=== PATIENT | female | born 1975 | race Caucasian/White ===

== ENCOUNTER 2022-07-02 11:01 | Emergency (ER) | payer BC, MEDICARE, SELFPAY ==
[2022-07-02] VITALS (17 sets, daily range): BP systolic 113–173; BP diastolic 80–123; PULSE 86–118; TEMP 36.7; O2SAT 96–100; BMI 41.3
--- NOTE | 2022-07-02 11:23 | ED.GENADULT ---
HPI - General Adult General Time Seen by Provider: 11:24 Date Seen: 07/02/22 Chief complaint: Abdominal Pain Stated complaint: Abdominal/back/limb pain Time Seen by Provider: 07/02/22 11:23 Source: patient and RN notes reviewed Mode of arrival: ambulatory Limitations: no limitations History of Present Illness HPI narrative: This 46-year-old patient is coming in with abdominal pain, pain into her legs, pain into her arms, pain and or head. She states she has chronic right-sided abdominal pain but it worsened. She actually went to [facility] on June 18 per her report. She had severe right-sided pain that shot indoor back down both sciatic sit down due in to her toes and into both arms. It shot up into her head. She states they did a CT and found a right ovarian cyst, possibly 2 cm. She has done some reading and notes that these can tours. She was also found to be constipated. She did take 1 dose of MiraLax, has had 2 bowel movements and there is no improvement. Yesterday she had increased emesis, has known problems with emesis. She is status post gastric bypass did have an EGD. I have reviewed her clinic note from April 30. She notes this morning there was low pink tinge in her emesis and she had more emesis of saliva and more bile yellow green emesis this morning. The pain radiates into her back, she feels pulse seen indoor shins. She states nothing makes the pain goes down. She thrashes at night, states she has ripped sheets and blankets due to the pain. Last night there was a hot poker type pain and she was hanging onto her daughter and accidentally squeezed her daughter hard that her daughter states it hurt. She states yesterday she noted a temp of 102? at home but it was 99 this morning. At our triage intake, her temp was 98?. Tizanidine has usually controlled her abdominal symptoms. She states she has not been able to eat or drink well. Related Data Home Medications Medication Instructions Recorded Confirmed escitalopram oxalate 20 mg tablet 20 mg PO DAILY 04/30/22 04/30/22 lisinopril 20 1 tab PO DAILY 04/30/22 04/30/22 mg-hydrochlorothiazide 25 mg tablet Medical Cannabis 07/02/22 Previous Rx's Medication Instructions Recorded metoprolol succinate 25 mg 25 mg PO QDAY #90 tabs 04/30/22 tablet,extended release 24 hr tizanidine 4 mg tablet 8 mg PO QID #240 tabs 04/30/22 omeprazole 20 mg capsule,delayed See Rx Instructions .Route 06/02/22 release .COMPLEX #90 caps Allergies Allergy/AdvReac Type Severity Reaction Status Date / Time adhesive Allergy Mild skin Verified 07/02/22 14:38 redness, peeling duloxetine Allergy Mild serotonin Verified 07/02/22 14:38 syndrome ibuprofen Allergy Unknown Verified 07/02/22 14:38 naproxen Allergy Unknown Verified 07/02/22 14:38 CI Pigment Blue 63 Allergy Mild serotonin Uncoded 07/02/22 14:38 syndrome Review of Systems Status of ROS: Reports: 10 or more systems reviewed and unremarkable except as noted in History and below [facility] Medical History (Updated 07/02/22 @ 15:39 by Stacie Daugherty MD) History of attention deficit disorder History of autism History of constipation History of irritable bowel syndrome Surgical History (Updated 04/30/22 @ 10:00 by Corrina Hicks PA-C) History of section History of colonoscopy History of esophagogastroduodenoscopy (EGD) History of gastric bypass History of hysterectomy Status post laparoscopy Family History (Updated 04/03/22 @ 13:47 by Lynn Martini) Father Cardiovascular disease Brother Cardiovascular disease Other Mental disorder Skin cancer Social History (Updated 04/03/22 @ 13:48 by Lynn Martini) Narrative: Disabled Has 2 children Medical cannabis use Non-smoker Smoking Status: Never smoker Do you use any of these nicotine containing products: None Second hand tobacco smoke exposure: No How often do you have a drink containing alcohol: never How often do you have six or more drinks on one occasion: Never AUDIT-C Alcohol total score: 0 Non-prescribed substance use: marijuana (any form) Exam Const: Vital Signs, click to edit/add: Vital Signs - 24 hr 07/02/22 11:05 07/02/22 12:31 07/02/22 12:32 Temperature 98.0 F Pulse Rate 110 H 102 H Pulse Rate [Right Pulse Oximeter] 118 H Blood Pressure 130/114 H Blood Pressure [Le ft Forearm] 113/94 H Pulse Oximetry 97 97 96 Oxygen Delivery Me thod Room Air 09/08/22 12:33 07/02/22 13:00 07/02/22 13:01 Temperature Pulse Rate 101 H 105 H 102 H Pulse Rate [Right Pulse Oximeter] Blood Pressure 121/80 Blood Pressure [Le ft Forearm] Pulse Oximetry 96 98 100 Oxygen Delivery Me thod 07/02/22 13:02 07/02/22 13:30 07/02/22 13:33 Temperature Pulse Rate 105 H 102 H 97 Pulse Rate [Right Pulse Oximeter] Blood Pressure 153/113 H Blood Pressure [Le ft Forearm] Pulse Oximetry 98 98 99 Oxygen Delivery Me thod 07/02/22 13:34 07/02/22 14:00 07/02/22 14:01 Temperature Pulse Rate 97 93 91 Pulse Rate [Right Pulse Oximeter] Blood Pressure 172/123 H Blood Pressure [Le ft Forearm] Pulse Oximetry 99 99 100 Oxygen Delivery Me thod 07/02/22 14:02 07/02/22 14:34 07/02/22 14:35 Temperature Pulse Rate 94 93 93 Pulse Rate [Right Pulse Oximeter] Blood Pressure 173/116 H Blood Pressure [Le ft Forearm] Pulse Oximetry 99 97 98 Oxygen Delivery Me thod 07/02/22 15:01 07/02/22 15:02 Temperature Pulse Rate 86 89 Pulse Rate [Right Pulse Oximeter] Blood Pressure 162/123 H Blood Pressure [Le ft Forearm] Pulse Oximetry 99 98 Oxygen Delivery Me thod Documenting provider has reviewed patient's vital signs: yes Common normals: oriented x3, no limitations, healthy appearing and alert General appearance: cooperative Nutritional appearance: obese HENMT: Common normals: normocephalic, head/scalp atraumatic, hearing grossly normal bilaterally, external ears normal, EAC's normal, external nose normal, nasal mucous membranes and turbinates normal, oropharynx normal, dentition normal and gingiva normal Head and scalp: normocephalic and atraumatic Nose: external nose normal, nasal mucous membranes and turbinates normal and mucous membranes and turbinates abnormal (Mildly dry) External ear: external ears normal External auditory canal: EAC's normal Eye: Common normals: PERRL, EOMs intact bilaterally, conjunctivae normal and no scleral icterus Conjunctiva: conjunctiva(e) normal Pupil: PERRL Neck & C-Spine: Common normals: full ROM, no lymphadenopathy, supple, no meningeal signs, no JVD and thyroid normal Thyroid: thyroid normal Resp: Common normals: normal respiratory effort, no retractions, no use of accessory muscles and clear to auscultation bilaterally Auscultation: clear to auscultation bilaterally Cardio: Common normals: no JVD, regular rate, regular rhythm, S1 normal heart sound, S2 normal heart sound, no gallops, no clicks and no murmurs Rate: regular rate Rhythm: regular rhythm Heart sounds: S1 normal and S2 normal GI: Other: Cries out in pain if I touch her abdomen anywhere. It is diffusely this way throughout her whole abdomen, abdomen is obese but soft. It is difficult to say if there is rebound or guarding due to her vigorous response to pain. Body habitus precludes any palpation of any masses but overall her abdomen is soft. Bowel sounds are there and present, do not feel they have any abnormal character. Back & Pelvis: Other: Cries out in pain when I palpate along her back, her paraspinous area. 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 Extremity: Other: Complains of pain when I attempt to do straight leg raising, states it is painful but do note that she can bend her legs up and push herself back up into bed and does not seem to bother her at all. She has no lower extremity edema. Seems to have symmetrical use in strength when I am observing her push herself back up into bed. Normal light touch sensation. Neuro: Common normals: oriented x3 Sensorium/orientation: alert Meningeal signs: no meningeal signs Course Course Hospital Course: Patient does seem to have an exaggerated pain response which may be her baseline. She does not seem to be in any way significantly compromised thus far as hemodynamic stability. I will order a L of fluids for her, get labs to make sure we are not missing a process. We will start with a flat and upright of her abdomen just to look at the bowel pattern, ensure no residual constipation. I will redo a pelvic ultrasound. I have tried to reassure her that a 2 cm cyst is not likely to cause ovarian torsion. We will see if we can see the right ovary to make sure that the cyst has not grown or that there are no concerning changes. I will talk to Yina about possibly some IV Toradol if she needs it. She lists ibuprofen and naproxen is allergies and need to confirm that these are true allergies but more of contraindication due to her gastric bypass. Reevaluation(s) Reevaluation #1: Reviewed with patient that her white count is up a little bit. Lactate when she came in was mildly elevated, could be consistent with her recurrent vomiting. We will recheck this after her L of fluids to ensure that is coming down. Have discussed with her her flat and upright and pelvic ultrasound are not showing anything concerning but they really could not visualize the ovaries due to bowel gas on the ultrasound. This would suggest that there is nothing in the ovaries that is significantly large but does not 100% rule out issues. We discussed next steps. She was told she could not take NSAIDs due to history of clotting. I reviewed with her that that really makes no sense as NSAIDs diminish platelets from forming clots in the thrombotic cascade. If patient's are on anticoagulants for vascular thrombosis, we will tell patient is to avoid NSAIDs then. Gastric bypass patients can be told to avoid oral NSAIDs because of the decreased gastric mobility in the NSAIDs increasing the risk for ulcers. However, IV Toradol certainly could be used even a gastric bypass patient. We will try this. We are going to proceed with CT abdomen and pelvis with IV contrast given her pain is significant in we really do not have definitive enough evidence to rule out an acute abdomen. Reevaluation #2: She is back from CT. She is getting waves of sharp pain. Offered to give her some IV Ativan but she does not want anything potentially addicting. Did offer to give her a dose of her tizanidine but she states she can take it when she gets home. We are waiting CT report at this time. Time: 14:46 Reevaluation #3: Reviewed with patient that the CT is not showing any acute change for any abdominal pain. Ovaries appear normal. Her liver does show hepatic steatosis which we did discuss. She stated she did get 6 tablets of pain pills upon discharge from [facility]. I did bring up pain management. We discussed the problem with narcotics in pain management. She does understand but she really has been miserable. She receives 6 tablets of tramadol per the [place] prescribing web site. She made those last and only took them at night to help her sleep. She does have a clinic appointment on Wednesday with her primary care provider. At this time I do feel that it would be crawl to assess patient to not try something for her. She has tried Tikosyn mean in the past but with her recent constipation on the CT that she was told from [facility], would not want her to take this medicine. She certainly will need further follow-up and evaluation and this at this time will have to be done outpatient she does not need hospitalization. Her followup lactate normalized. We will send her home with a prescription from [facility] with the smallest dose of tramadol we have. Time: 15:33 Vital Signs Vital signs: Initial Vital Signs Temperature 98.0 F 07/02/22 11:05 Temperature Source Temporal Artery Scan 07/02/22 11:05 Pulse Rate 118 H 07/02/22 11:05 Blood Pressure 113/94 H 07/02/22 11:05 Blood Pressure Mean 100 07/02/22 11:05 Blood Pressure Position Sitting 07/02/22 11:05 Pulse Oximetry 97 07/02/22 11:05 Oxygen Delivery Method 07/02/22 11:05 Vital Signs Temperature 98.0 F 07/02/22 11:05 Pulse Rate 118 H 07/02/22 11:05 Blood Pressure 113/94 H 07/02/22 11:05 Pulse Oximetry 97 07/02/22 11:05 Oxygen Delivery Method 07/02/22 11:05 Temperature 98.0 F 07/02/22 11:05 Pulse Rate 89 07/02/22 15:02 Blood Pressure 162/123 H 07/02/22 15:01 Pulse Oximetry 98 07/02/22 15:02 Oxygen Delivery Method 07/02/22 11:05 Medical Decision Making Lab Data Lab results reviewed: Yes I reviewed the patient's lab results Labs: Lab Results 07/02/22 07/02/22 07/02/22 Range/Units 11:44 11:50 11:50 WBC 11.37 H (4.50-11.00) K/uL RBC 5.58 H (4.00-5.20) m/uL Hgb 15.3 (12.0-16.0) gm/dL Hct 46.0 (33.0-51.0) % MCV 82 (80-100) fL MCH 27 (26-34) pg MCHC 33 (32-36) gm/dL RDW Coeff of Judi 14.2 (11.5-15.5) % Plt Count 381 (140-440) K/uL Neut % (Auto) 67.6 (42.0-72.0) % Lymph % (Auto) 28.1 (20-44) % Steele % (Auto) 3.8 (0.0-11.0) % Eos % (Auto) 0.3 (0.0-7.0) % Baso % (Auto) 0.1 (0.0-3.0) % Neut # (Auto) 7.70 H (1.7-7.0) K/uL Lymph # (Auto) 3.20 H (0.90-2.90) K/uL Steele # (Auto) 0.40 (0.00-0.90) K/UL Eos # (Auto) 0.00 (0.00-0.50) K/uL Baso # (Auto) 0.00 (0.00-0.30) K/uL Abs Immat Gran (auto) 0.01 (0.00-0.30) K/uL Sodium 140 (135-149) mmol/L Potassium 4.0 (3.6-5.1) mmol/L Chloride 105 (96-114) mmol/L Carbon Dioxide 22 (20-32) mmol/L BUN 11 (5-24) mg/dL Creatinine 0.6 (0.5-1.5) mg/dL Estimated Creat Clear 105.42 Estimated GFR 112 ml/min Glucose 133 H (60-115) mg/dL Lactate (0.5-1.9) mmol/L Calcium 9.6 (8.4-10.6) mg/dL Total Bilirubin 0.8 (0.1-1.5) mg/dL AST 56 H (12-35) U/L ALT 54 H (4-35) U/L Alkaline Phosphatase 183 H (40-150) U/L C-Reactive Protein 1.4 H (0.5-1.0) mg/dL Total Protein 8.5 H (6.0-8.3) g/dL Albumin 4.8 (3.3-5.0) g/dL Lipase 217 (23-300) U/L Urine Color Yellow (Yellow) Urine Appearance Slightly Cloudy A (Clear) Urine pH 5.0 (5.0-8.5) Ur Specific [place] 1.020 (1.000-1.030) Urine Protein Negative (Negative) Urine Glucose (UA) Negative (Negative) Urine Ketones Negative (Negative) Urine Blood Negative (Negative) Urine Nitrite Negative (Negative) Urine Bilirubin Negative (Negative) Urine Urobilinogen 0.2 (0.2-1.0) Ur Leukocyte Esterase Negative (Negative) Urine RBC 0-2 (0-2) Urine WBC 0-2 (0-5) Ur Squamous Epith Cells Few (None-Few) Urine Bacteria Few A (None) 07/02/22 07/02/22 Range/Units 11:50 13:45 WBC (4.50-11.00) K/uL RBC (4.00-5.20) m/uL Hgb (12.0-16.0) gm/dL Hct (33.0-51.0) % MCV (80-100) fL MCH (26-34) pg MCHC (32-36) gm/dL RDW Coeff of Judi (11.5-15.5) % Plt Count (140-440) K/uL Neut % (Auto) (42.0-72.0) % Lymph % (Auto) (20-44) % Steele % (Auto) (0.0-11.0) % Eos % (Auto) (0.0-7.0) % Baso % (Auto) (0.0-3.0) % Neut # (Auto) (1.7-7.0) K/uL Lymph # (Auto) (0.90-2.90) K/uL Steele # (Auto) (0.00-0.90) K/UL Eos # (Auto) (0.00-0.50) K/uL Baso # (Auto) (0.00-0.30) K/uL Abs Immat Gran (auto) (0.00-0.30) K/uL Sodium (135-149) mmol/L Potassium (3.6-5.1) mmol/L Chloride (96-114) mmol/L Carbon Dioxide (20-32) mmol/L BUN (5-24) mg/dL Creatinine (0.5-1.5) mg/dL Estimated Creat Clear Estimated GFR ml/min Glucose (60-115) mg/dL Lactate 2.5 H 1.1 (0.5-1.9) mmol/L Calcium (8.4-10.6) mg/dL Total Bilirubin (0.1-1.5) mg/dL AST (12-35) U/L ALT (4-35) U/L Alkaline Phosphatase (40-150) U/L C-Reactive Protein (0.5-1.0) mg/dL Total Protein (6.0-8.3) g/dL Albumin (3.3-5.0) g/dL Lipase (23-300) U/L Urine Color (Yellow) Urine Appearance (Clear) Urine pH (5.0-8.5) Ur Specific [place] (1.000-1.030) Urine Protein (Negative) Urine Glucose (UA) (Negative) Urine Ketones (Negative) Urine Blood (Negative) Urine Nitrite (Negative) Urine Bilirubin (Negative) Urine Urobilinogen (0.2-1.0) Ur Leukocyte Esterase (Negative) Urine RBC (0-2) Urine WBC (0-5) Ur Squamous Epith Cells (None-Few) Urine Bacteria (None) Imaging Data US - abdomen: Attestation: I have reviewed the pertinent imaging results. Radiologist's impression: Patient: LENIN DAMARISCOTTA Facility:?[facility] Patient ID:?[id number] Site Patient ID:?[id number]. Site :?[id number] Study:?US Pelvis -07/02/2022 12:23:58 PM Ordering Physician:Delores Quinones Final Report: INDICATION: LOWER ABD PAIN, KNOWN OVARIAN CYST, S/P HYSTERECTOMY COMPARISON: none TECHNIQUE: 2D jhaveri scale and color Doppler images were acquired of the pelvis using a transabdominal and transvaginal approach. FINDINGS: The uterus is surgically absent. The ovaries are not visualized. IMPRESSION: Status post hysterectomy. Nonvisualization of the ovaries due to overlying bowel gas. No pelvic fluid collection or soft tissue mass. Dictated by Horace Link MD @ 07/02/2022 12:26:14 PM (Electronic Signature) Abdominal x-ray: Attestation: I have reviewed the pertinent imaging results. Radiologist's impression: Patient: LENIN GOYALSWORTH Facility:?[facility] Patient ID:?[id number] Site Patient ID:?[id number]. Site :?[id number] Study:?XRay Abdomen FLAT AND UPRIGHT-07/02/2022 12:29:23 PM Ordering Physician:?Dat Quinones Final Report: INDICATION: Pain, complains of abdominal pain, recent constipation TECHNIQUE: Abdomen/Pelvis radiograph 4 views COMPARISON: None FINDINGS: The sensitivity and specificity of the exam are severely limited by the patient`s body habitus. Bowel: Mild nonspecific gaseous distention of the transverse colon is noted. The bowel gas pattern is normal without evidence of bowel obstruction. Soft tissue: No evidence of pneumoperitoneum present. No suspicious calcifications noted. Several surgical clips are present in the left flank. Bone: Unremarkable for age. IMPRESSION: 1. Unremarkable appearance of the visualized abdomen. Dictated by Galindo Chris MD @ 07/02/2022 12:51:07 PM Dictated by: Galindo Chris MD @ 07/02/2022 12:51:17 (Electronic Signature) CT scan - abdomen: Attestation: I have reviewed the pertinent imaging results. Radiologist's impression: Patient: LENIN MASON Facility:?[facility] Patient ID:?[id number] Site Patient ID:?[id number]. Site :?[id number] Study:?CT Abdomen/Pelvis 121CC ISOVUE 370-07/02/2022 2:42:14 PM Ordering Physician:?Dat Quinones Final Report: INDICATION: Right lower quadrant pain. History of ovarian cysts. Nonvisualization of ovaries on recent ultrasound COMPARISON: A prior study dated February 17, 2022 and a pelvic ultrasound from earlier the same day. TECHNIQUE: CT examination of the abdomen and pelvis was performed following the uneventful intravenous administration of 121 cc of Isovue 370. Thin section axial images were obtained from the lung bases through the pubic symphysis. Oral contrast was not administered. Please note that all CT scans at this facility use dose modulation, iterative reconstruction, and/or weight-based dosing when appropriate to reduce radiation dose to as low as reasonably achievable. FINDINGS: LUNG BASES: The lung bases as visualized appear normal.The heart size is normal at the lung bases. LIVER/BILIARY SYSTEM:The liver is normal in size and configuration. There is no focal mass and there is no intra- or extra hepatic biliary ductal dilatation.Hepatic steatosis. Gallbladder surgically absent. ADRENALS: Normal KIDNEYS, URETERS and BLADDER:The kidneys appear normal. No visible mass, calculus or hydronephrosis. The ureters and bladder as visualized appear normal. SPLEEN:Normal appearance. PANCREAS: Appears normal. RETROPERITONEUM and MESENTERY: There is no mass, adenopathy or aortic aneurysm. GASTROINTESTINAL SYSTEM: There is no evidence of diverticulitis, colitis, mechanical obstruction, or appendicitis. The small bowel as visualized appears normal.Postoperative changes related stomach. Acute GI findings. Scattered diverticulosis. PELVIS: No mass, adenopathy or free fluid.No evidence of ovarian or adnexal mass. The uterus is absent. The ovaries are well-visualized and appear normal. OSSEOUS STRUCTURES and ABDOMINAL WALL: There is an age-appropriate appearance of the osseous structures.No significant abdominal wall defect. OTHER: No free fluid or free air. IMPRESSION: No visible cause for pain. The ovaries are well-visualized and appear normal. Incidental nonacute appearing findings as above Please note that all CT scans at this facility use dose modulation, iterative reconstruction, and/or weight-based dosing when appropriate to reduce radiation dose to as low as reasonably achievable. Dictated by Brown Collins MD @ 07/02/2022 3:11:35 PM (Electronic Signature) Critical Care Time Critical Care Time Critical Care Time: No Discharge Plan Discharge Clinical Impression: Right-sided abdominal pain of unknown cause Condition: Stable Instructions: Abdominal Pain (ED) Additional Instructions: Can use Tylenol baseline for pain, follow bottle directions for dosing. I have written for tramadol 50 mg at bedtime as needed to help with sleep. Need to keep your follow-up appointment in clinic. Consideration for further testing including but not limited to colonoscopy, GI referral should be entertained. If you develop fever, feel that you are worsening, cannot keep down oral fluids for over 24 hours, do recommend re-evaluation in the interim. Activity Level: Activity as Tolerated Prescriptions: No Action escitalopram oxalate 20 mg tablet 20 mg PO DAILY lisinopril-hydrochlorothiazide 20-25 mg tablet 1 tab PO DAILY metoprolol succinate 25 mg tablet extended release 24 hr 25 mg PO QDAY Qty: 90 3RF tizanidine 4 mg tablet 8 mg PO QID Qty: 240 5RF Medical Cannabis omeprazole 20 mg capsule,delayed release(DR/EC) See Rx Instructions .ROUTE .COMPLEX Qty: 90 3RF Dose Instruction: TAKE 1 CAPSULE BY MOUTH EVERY DAY Rx Instructions: TAKE 1 CAPSULE BY MOUTH EVERY DAY Follow Up/Referrals: Corrina Hicks PA-C [Primary Care Provider] - Stand Alone Forms: [email or web address] Info Instructions
--- NOTE | 2022-07-02 11:36 | CRLHL7_ITS ---
For Patients: As a result of the Cures Act, medical imaging exams and procedure reports are released immediately into your electronic medical record. You may view this report before your referring provider. If you have questions, please contact your health care provider. INDICATION: LOWER ABD PAIN, KNOWN OVARIAN CYST, S/P HYSTERECTOMY COMPARISON: none TECHNIQUE: 2D jhaveri scale and color Doppler images were acquired of the pelvis using a transabdominal and transvaginal approach. FINDINGS: The uterus is surgically absent. The ovaries are not visualized. IMPRESSION: Status post hysterectomy. Nonvisualization of the ovaries due to overlying bowel gas. No pelvic fluid collection or soft tissue mass. Dictated by Horace Link MD @ 07/02/2022 12:26:14 PM (Electronically Signed)
--- NOTE | 2022-07-02 11:36 | CRLHL7_ITS ---
For Patients: As a result of the Century Cures Act, medical imaging exams and procedure reports are released immediately into your electronic medical record. You may view this report before your referring provider. If you have questions, please contact your health care provider. INDICATION: Pain, complains of abdominal pain, recent constipation TECHNIQUE: Abdomen/Pelvis radiograph 4 views COMPARISON: None FINDINGS: The sensitivity and specificity of the exam are severely limited by the patient`s body habitus. Bowel: Mild nonspecific gaseous distention of the transverse colon is noted. The bowel gas pattern is normal without evidence of bowel obstruction. Soft tissue: No evidence of pneumoperitoneum present. No suspicious calcifications noted. Several surgical clips are present in the left flank. Bone: Unremarkable for age. IMPRESSION: 1. Unremarkable appearance of the visualized abdomen. Dictated by Galindo Chris MD @ 07/02/2022 12:51:07 PM Dictated by: Galindo Chris MD @ 07/02/2022 12:51:17 (Electronically Signed)
[2022-07-02 11:54] LABS: Appearance Urine Slightly Cloudy (Clear); Bilirubin Urine Negative (Negative); Blood Urine Negative (Negative); Color Urine Yellow (Yellow); Glucose Urine Negative (Negative); Ketones Urine Negative (Negative); Leukocyte Esterase Urine Negative (Negative); Nitrite Urine Negative (Negative); Protein Urine Negative (Negative); Urobilinogen Urine 0.2 (0.2-1.0)
[2022-07-02 11:59] LABS: Lactate* 2.5 mmol/L (0.5-1.9)
[2022-07-02 12:04] LABS: Bacteria Urine Few; RBC Urine 0-2 (0-2); Squamous Epithelial Cell Urine Few (None-Few); WBC Urine 0-2 (0-5)
[2022-07-02 12:05] LABS: Basophils Percent Auto 0.1 % (0.0-3.0); Eosinophils Percent Auto 0.3 % (0.0-7.0); Hemoglobin* 15.3 gm/dL (12.0-16.0); Immature Granulocytes Abs Auto 0.01 K/uL (0.00-0.30); Lymphocytes Percent Auto 28.1 % (20-44); Mean Corpuscular HGB Conc 33 gm/dL (32-36); Mean Corpuscular Hemoglobin 27 pg (26-34); Mean Corpuscular Volume 82 fL (80-100); Monocytes Percent Auto 3.8 % (0.0-11.0); Neutrophils Percent Auto 67.6 % (42.0-72.0); Platelet Count* 381 K/uL (140-440); RDW Coefficient of Variation % 14.2 % (11.5-15.5); Red Blood Count 5.58 m/uL (4.00-5.20); White Blood Count* 11.37 K/uL (4.50-11.00)
[2022-07-02 12:09] LABS: Slide Review Reflex No
[2022-07-02 12:22] LABS: Albumin* 4.8 g/dL (3.3-5.0); Chloride* 105 mmol/L (96-114)
[2022-07-02 12:23] LABS: Sodium* 140 mmol/L (135-149)
[2022-07-02 12:25] LABS: Bilirubin Total* 0.8 mg/dL (0.1-1.5); Creatinine* 0.6 mg/dL (0.5-1.5); Est. Creatinine Clearance* 105.42; Estimated Glomerular Filt Rate 112 ml/min
[2022-07-02 12:26] LABS: Alanine Aminotransferase* 54 U/L (4-35); Alkaline Phosphatase* 183 U/L (40-150); Aspartate Amino Transferase* 56 U/L (12-35); Blood Urea Nitrogen* 11 mg/dL (5-24); Calcium* 9.6 mg/dL (8.4-10.6); Carbon Dioxide* 22 mmol/L (20-32); Glucose* 133 mg/dL (60-115); Lipase* 217 U/L (23-300); Total Protein* 8.5 g/dL (6.0-8.3)
[2022-07-02 12:29] LABS: C Reactive Protein* 1.4 mg/dL (0.5-1.0)
[2022-07-02] MEDS: 0.9 % SODIUM CHLORIDE 1000 ml 1,000 ML IV (12:33)
--- NOTE | 2022-07-02 13:29 | CRLHL7_ITS ---
For Patients: As a result of the Century Cures Act, medical imaging exams and procedure reports are released immediately into your electronic medical record. You may view this report before your referring provider. If you have questions, please contact your health care provider. INDICATION: Right lower quadrant pain. History of ovarian cysts. Nonvisualization of ovaries on recent ultrasound COMPARISON: A prior study dated February 17, 2022 and a pelvic ultrasound from earlier the same day. TECHNIQUE: CT examination of the abdomen and pelvis was performed following the uneventful intravenous administration of 121 cc of Isovue 370. Thin section axial images were obtained from the lung bases through the pubic symphysis. Oral contrast was not administered. Please note that all CT scans at this facility use dose modulation, iterative reconstruction, and/or weight-based dosing when appropriate to reduce radiation dose to as low as reasonably achievable. FINDINGS: LUNG BASES: The lung bases as visualized appear normal.The heart size is normal at the lung bases. LIVER/BILIARY SYSTEM:The liver is normal in size and configuration. There is no focal mass and there is no intra- or extra hepatic biliary ductal dilatation.Hepatic steatosis. Gallbladder surgically absent. ADRENALS: Normal KIDNEYS, URETERS and BLADDER:The kidneys appear normal. No visible mass, calculus or hydronephrosis. The ureters and bladder as visualized appear normal. SPLEEN:Normal appearance. PANCREAS: Appears normal. RETROPERITONEUM and MESENTERY: There is no mass, adenopathy or aortic aneurysm. GASTROINTESTINAL SYSTEM: There is no evidence of diverticulitis, colitis, mechanical obstruction, or appendicitis. The small bowel as visualized appears normal.Postoperative changes related stomach. Acute GI findings. Scattered diverticulosis. PELVIS: No mass, adenopathy or free fluid.No evidence of ovarian or adnexal mass. The uterus is absent. The ovaries are well-visualized and appear normal. OSSEOUS STRUCTURES and ABDOMINAL WALL: There is an age-appropriate appearance of the osseous structures.No significant abdominal wall defect. OTHER: No free fluid or free air. IMPRESSION: No visible cause for pain. The ovaries are well-visualized and appear normal. Incidental nonacute appearing findings as above Please note that all CT scans at this facility use dose modulation, iterative reconstruction, and/or weight-based dosing when appropriate to reduce radiation dose to as low as reasonably achievable. Dictated by Brown Collins MD @ 07/02/2022 3:11:35 PM (Electronically Signed)
[2022-07-02] MEDS: KETOROLAC 30 MG/ML inj IVP (13:38)
[2022-07-02 13:51] LABS: Lactate* 1.1 mmol/L (0.5-1.9)
== END 2022-07-02 15:59 | disposition home or self-care (01) ==
PROVIDERS: Emergency Provider Family Medicine; PCP Physician Assistant Medical
DX: R10.9 Unspecified abdominal pain (principal)
CPT/HCPCS: 36415; 74019; 74177; 76830; 76856; 80053; 81001; 83605; 83690; 85025; 86140; 87086; 96374; 99284; 99285; J1885; J7030; Q9967

== ENCOUNTER 2022-07-07 10:42 | Outpatient (CLI) | payer BC, MEDICARE, SELFPAY ==
[2022-07-07 16:17] LABS: Albumin* 4.9 g/dL (3.3-5.0)
[2022-07-07 16:19] LABS: Bilirubin Direct* 0.3 mg/dL (0.0-0.5); Bilirubin Total* 0.8 mg/dL (0.1-1.5); Cholesterol* 260 mg/dL (90-199); Total Protein* 8.1 g/dL (6.0-8.3); Triglycerides* 333 mg/dL (40-149)
[2022-07-07 16:20] LABS: Alanine Aminotransferase* 41 U/L (4-35); Alkaline Phosphatase* 211 U/L (40-150); Aspartate Amino Transferase* 42 U/L (12-35); HDL Cholesterol* 53 mg/dL (>=50); LDL Cholesterol Calculated 140 mg/dL (<100)
[2022-07-07 17:04] LABS: Vitamin B12* 313 pg/mL (243-894)
[2022-07-09 05:02] LABS: Vitamin D, 1,25-Dihydroxy 70.6 pg/mL (19.9-79.3)
== END 2022-07-07 10:43 | disposition home or self-care (01) ==
PROVIDERS: PCP Physician Assistant Medical; Visit Provider Physician Assistant Medical
DX: E55.9 Vitamin D deficiency, unspecified (principal); I10 Essential (primary) hypertension; R11.10 Vomiting, unspecified; R94.5 Abnormal results of liver function studies; E66.9 Obesity, unspecified; M79.7 Fibromyalgia; R10.9 Unspecified abdominal pain
CPT/HCPCS: 80061; 80076; 82607; 82652; 82728; 84443

== ENCOUNTER 2022-08-12 09:41 | Outpatient (CLI) | payer BC, MEDICARE, SELFPAY ==
[2022-08-12 14:15] LABS: Lipase* 621 U/L (23-300)
[2022-08-12 14:17] LABS: Albumin* 5.2 g/dL (3.3-5.0)
[2022-08-12 14:19] LABS: C Reactive Protein* 1.4 mg/dL (0.5-1.0)
[2022-08-12 14:20] LABS: Alkaline Phosphatase* 213 U/L (40-150); Aspartate Amino Transferase* 38 U/L (12-35); Bilirubin Direct* 0.2 mg/dL (0.0-0.5); Bilirubin Total* 0.7 mg/dL (0.1-1.5); Total Protein* 8.3 g/dL (6.0-8.3)
[2022-08-12 14:21] LABS: Alanine Aminotransferase* 34 U/L (4-35)
[2022-08-13 13:54] LABS: Amphetamine Screen Urine Negative (Negative); Barbiturate Screen Urine Negative (Negative); Benzodiazepines Screen Urine Negative (Negative); Cocaine Screen Urine Negative (Negative); Methadone Screen Urine Negative (Negative); Methamphetamines Screen Urine Negative (Negative); Oxycodone Screen Urine Negative (Negative); Phencyclidine Screen Urine Negative (Negative); Tricyclic Antidepressant Urine Negative (Negative)
[2022-08-13 14:05] LABS: Cannabinoid Screen Urine POSITIVE (Negative); Opiate Screen Urine POSITIVE (Negative)
[2022-08-13 18:39] LABS: HLA-B27 Negative (Negative)
[2022-08-15 04:47] LABS: Anti-Nuclear Ab(ANA)IgG ELISA None Detected (None Detected)
== END 2022-08-12 09:42 | disposition home or self-care (01) ==
PROVIDERS: PCP Physician Assistant Medical; Visit Provider Physician Assistant Medical
DX: I16.0 Hypertensive urgency (principal); R21 Rash and other nonspecific skin eruption; G89.29 Other chronic pain; R10.9 Unspecified abdominal pain; E55.9 Vitamin D deficiency, unspecified; E66.9 Obesity, unspecified
CPT/HCPCS: 80076; 80306; 83516; 83690; 84443; 84484; 86039; 86140; 86812

== ENCOUNTER 2022-08-17 16:34 | Outpatient (CLI) | payer BC, MEDICARE, SELFPAY ==
[2022-08-17 22:03] LABS: Albumin* 4.8 g/dL (3.3-5.0); Chloride* 102 mmol/L (96-114)
[2022-08-17 22:04] LABS: Potassium* 4.3 mmol/L (3.6-5.1); Sodium* 136 mmol/L (135-149)
[2022-08-17 22:06] LABS: Alkaline Phosphatase* 199 U/L (40-150); Aspartate Amino Transferase* 42 U/L (12-35); Bilirubin Total* 0.5 mg/dL (0.1-1.5); Blood Urea Nitrogen* 14 mg/dL (5-24); Carbon Dioxide* 18 mmol/L (20-32); Estimated Glomerular Filt Rate 70 ml/min; Glucose* 154 mg/dL (60-115); Lipase* 515 U/L (23-300)
[2022-08-17 22:07] LABS: Alanine Aminotransferase* 38 U/L (4-35); Calcium* 10.3 mg/dL (8.4-10.6)
[2022-08-17 22:51] LABS: HIV 1/2/P24 Combo Screen* Negative (Negative)
[2022-08-17 22:56] LABS: Hepatitis C Virus Antibody* Negative (Negative)
== END 2022-08-17 16:35 | disposition home or self-care (01) ==
PROVIDERS: PCP Physician Assistant Medical; Visit Provider Physician Assistant Medical
DX: R10.9 Unspecified abdominal pain (principal); G89.29 Other chronic pain; I10 Essential (primary) hypertension; F41.9 Anxiety disorder, unspecified
CPT/HCPCS: 80053; 83690; 86703; 86803

== ENCOUNTER 2023-08-22 03:38 | Emergency (ER) | payer BC, MEDICARE, SELFPAY ==
[2023-08-22] VITALS (29 sets, daily range): BP systolic 117–197; BP diastolic 95–136; PULSE 92–117; RESP 20; TEMP 37.1; O2SAT 95–99; BMI 40.8
--- NOTE | 2023-08-22 04:11 | ED_ITS ---
HPI - General Adult General Chief complaint: Unspecified Complaint, Adult Stated complaint: High blood pressure,chest pain,shortness of breath Time Seen by Provider: 08/22/23 03:42 History of Present Illness HPI narrative: Pt aox4, ABCs intact. Patient arrives with for evaluation of multiple complaints. Patient states that she has been seen multiple times over the past 4 months for her uncontrolled high blood pressure and chronic migraines. Tonight around 2100 patient states that her migraine was so bad that she started having several additional symptoms that concerned her. Patient states that her blood pressure at 2100 was 199/ 104. Along with her high blood pressure she was also experiencing right sided weakness, neck pain, shortness of breath and chest pain as well as some vomiting. She states that due to her Buldging disks in her back every time she vomited her back would seize. She states that she is having severe pressure in her head that is causing her to feel like she is being stabbed by a thousand pins and needs from my head to the pinky toes . Criseldajoesph duy states that she completely lost her vision from [id number] ...2229. She notes that now she is having a red glow in her peripheral vision and cannot see anything in her periphery except for the glow. Patient was seen in [facility] ER 3 times during the month of July and had 2 negative [address]s and a negative MRI. 47-year-old woman presenting to the emergency department with numerous concerns. Most recently though has been experiencing constant headache for approximately 4 weeks. Intermittent visual changes over this time. Currently feeling like the back of her head neck is getting ripped off she says. She is photophobic. Does have an underlying history of migraine and fibromyalgia. A little over a year ago when started having these episodes, had extensive workup with Neurology without clear diagnosis. Subsequently diagnosed with PRES I believe when lost total vision. Ended up in the ICU. She has been evaluated in the emergency department with CT and MRV imaging of the head more recently with imaging done August 05 and August 07 and then also August 14. After the CT was called back quickly for next level imaging the MRI/MRV was done on the . U ltimately imaging apparently has been negative. Has been recommended for outpatient control of blood pressures at this point. Had been on hydrochlorothiazide in the past this was discontinued due to some cardiac concerns she says. She has been reordered for this through the emergency department having just started re-dosing again today. She says that with the the 1st dose of hydrochlorothiazide she could feel her head ?drain?. Otherwise has been taking lisinopril for some time at 20 mg and that was increased about 2 weeks ago to 40 mg daily. She does reveal to nursing and she is not the best taking medications. Later in visit she does acknowledge that is taking carvedilol as well. Today with increasing headache felt weak on the right side, though this was associated with vomiting and where she feels her entire back spasming, increasing neck pain and did vomit. About 7 hours prior to arrival did have central loss of vision for about 2 hours. That resolved and now she is experiencing a red haziness in the periphery of both eyes. Checking blood pressures at home with a forearm/wrist cuff. She feels that these pressures correlate typically with what she would get in clinic. Related Data Home Medications Medication Instructions Recorded Confirmed Medical Cannabis 07/02/22 08/26/23 Previous Rx's Medication Instructions Recorded pantoprazole 40 mg tablet,delayed 40 mg PO BID #180 tabs 03/19/23 release (Protonix) escitalopram oxalate 20 mg tablet 20 mg PO DAILY #30 tabs 04/14/23 prochlorperazine maleate 10 mg 10 mg PO Q8H PRN nausea and 05/05/23 tablet (Compazine) vomiting #30 tabs tizanidine 4 mg tablet 8 mg (2 x 4 mg) PO QID 30 days 05/11/23 #240 tabs semaglutide 0.25 mg or 0.5 mg (2 0.5 mg (0.736 mL) subcut QWEEK #3 08/24/23 mg/3 mL) subcutaneous pen injector mL (Ozempic) amlodipine 10 mg tablet 10 mg PO DAILY #90 tabs 08/26/23 clonidine HCl 0.1 mg tablet 0.1 mg PO BID #60 tabs 08/26/23 hydrochlorothiazide 25 mg tablet 25 mg PO QAM #90 tabs 08/26/23 lisinopril 40 mg tablet 40 mg PO QDAY #90 tabs 08/26/23 Allergies Allergy/AdvReac Type Severity Reaction Status Date / Time adhesive Allergy Mild skin Verified 08/26/23 08:54 redness, peeling duloxetine Allergy Mild serotonin Verified 08/26/23 08:54 syndrome ibuprofen Allergy Unknown Verified 08/26/23 08:54 naproxen Allergy Unknown Verified 08/26/23 08:54 CI Pigment Blue 63 Allergy Mild serotonin Uncoded 08/26/23 08:54 syndrome Review of Systems Status of ROS: Reports: 6 or more systems reviewed and unremarkable except as noted in History and below [facility] Medical History (Updated 09/06/23 @ 00:00 by Background Daemon) PRES (posterior reversible encephalopathy syndrome) ?I67.83 - Posterior reversible encephalopathy syndrome (ICD-10) Elevated erythrocyte sedimentation rate ?R70.0 - Elevated erythrocyte sedimentation rate (ICD-10) Hypertensive urgency ?I16.0 - Hypertensive urgency (ICD-10) History of irritable bowel syndrome ?Z87.19 - Personal history of other diseases of the digestive system (ICD-10) History of constipation ?Z87.19 - Personal history of other diseases of the digestive system (ICD-10) History of autism ?Z86.59 - Personal history of other mental and behavioral disorders (ICD-10) History of attention deficit disorder ?Z86.59 - Personal history of other mental and behavioral disorders (ICD-10) Surgical History Status post laparoscopy ?Z98.890 - Other specified postprocedural states (ICD-10) History of hysterectomy ?Z90.710 - Acquired absence of both cervix and uterus (ICD-10) History of gastric bypass ?Z98.84 - Bariatric surgery status (ICD-10) History of esophagogastroduodenoscopy (EGD) ?Z98.890 - Other specified postprocedural states (ICD-10) History of colonoscopy ?Z98.890 - Other specified postprocedural states (ICD-10) History of section ?Z98.891 - History of uterine scar from previous surgery (ICD-10) Family History Father Cardiovascular disease Brother Cardiovascular disease Mother Scleroderma Other Mental disorder Skin cancer Social History Narrative: Disabled Has 2 children Medical cannabis use Non-smoker Smoking Status: Never smoker Do you use any of these nicotine containing products: None Second hand tobacco smoke exposure: No How often do you have a drink containing alcohol: never How often do you have six or more drinks on one occasion: Never AUDIT-C Alcohol total score: 0 Non-prescribed substance use: marijuana (any form) Little interest or pleasure in doing things: nearly every day Feeling down, depressed, or hopeless: more than half the days Exam Narrative: Exam Narrative: Seems little uncomfortable subtly restless. Moving all extremities without difficulty. Transitions with apparent difficulty. Neck is exquisitely tender in the paracervical and upper trapezial musculature. She is nontender midline back. Cranial nerves 2-12 are intact. Pupils are equal and briskly reactive and accommodating. Lungs appear to be clear. Heart initially an elevated rate and regular rhythm. Extremities are without edema. Moving all extremities without difficulty with good strength. Funduscopic exam actually looks to have a healthy vasculature. I do not see any hemorrhages. Not really able to visualize the periphery though. Const: Vital Signs, click to edit/add: Vital Signs - 24 hr 08/22/23 03:55 08/22/23 06:29 08/22/23 06:30 Temperature 98.7 F Pulse Rate 107 H 117 H Pulse Rate [Right Pulse Oximeter] 115 H Respiratory Rate 20 Blood Pressure Blood Pressure [Ri ght Upper Arm] 117/95 H Pulse Oximetry 99 98 99 Oxygen Delivery Me thod Room Air 08/22/23 06:31 08/22/23 06:33 08/22/23 06:57 Temperature Pulse Rate 111 H 105 H 105 H Pulse Rate [Right Pulse Oximeter] Respiratory Rate Blood Pressure 180/107 H 154/100 H Blood Pressure [Ri ght Upper Arm] Pulse Oximetry 98 98 98 Oxygen Delivery Me thod 08/22/23 06:59 08/22/23 07:00 08/22/23 07:02 Temperature Pulse Rate 100 99 101 H Pulse Rate [Right Pulse Oximeter] Respiratory Rate Blood Pressure 167/112 H 171/136 H Blood Pressure [Ri ght Upper Arm] Pulse Oximetry 96 96 97 Oxygen Delivery Me thod 08/22/23 07:03 08/22/23 07:12 08/22/23 07:15 Temperature Pulse Rate 102 H 107 H 97 Pulse Rate [Right Pulse Oximeter] Respiratory Rate Blood Pressure 167/115 H Blood Pressure [Ri ght Upper Arm] Pulse Oximetry 97 99 97 Oxygen Delivery Me thod 08/22/23 07:22 08/22/23 07:23 08/22/23 07:30 Temperature Pulse Rate 108 H 106 H 92 Pulse Rate [Right Pulse Oximeter] Respiratory Rate Blood Pressure 175/105 H Blood Pressure [Ri ght Upper Arm] Pulse Oximetry 98 97 95 Oxygen Delivery Me thod 08/22/23 07:32 08/22/23 07:42 08/22/23 07:45 Temperature Pulse Rate 92 96 93 Pulse Rate [Right Pulse Oximeter] Respiratory Rate Blood Pressure 174/113 H 177/116 H Blood Pressure [Ri ght Upper Arm] Pulse Oximetry 96 96 96 Oxygen Delivery Me thod 08/22/23 07:52 08/22/23 07:53 08/22/23 08:00 Temperature Pulse Rate 101 H 100 100 Pulse Rate [Right Pulse Oximeter] Respiratory Rate Blood Pressure 197/120 H Blood Pressure [Ri ght Upper Arm] Pulse Oximetry 98 97 97 Oxygen Delivery Me thod 08/22/23 08:02 08/22/23 08:15 Temperature Pulse Rate 102 H 92 Pulse Rate [Right Pulse Oximeter] Respiratory Rate Blood Pressure 195/118 H Blood Pressure [Ri ght Upper Arm] Pulse Oximetry 97 95 Oxygen Delivery Me thod Documenting provider has reviewed patient's vital signs: yes Course Vital Signs Vital signs: Initial Vital Signs Temperature 98.7 F 08/22/23 03:55 Temperature Source Temporal Artery Scan 08/22/23 03:55 Pulse Rate 115 H 08/22/23 03:55 Pulse Strength 3+ Normal 08/22/23 03:55 Respiratory Rate 20 08/22/23 03:55 Blood Pressure 117/95 H 08/22/23 03:55 Blood Pressure Mean 102 08/22/23 03:55 Blood Pressure Position Sitting 08/22/23 03:55 Pulse Oximetry 99 08/22/23 03:55 Oxygen Delivery Method Room Air 08/22/23 03:55 Vital Signs Temperature 98.7 F 08/22/23 03:55 Pulse Rate 115 H 08/22/23 03:55 Respiratory Rate 20 08/22/23 03:55 Blood Pressure 117/95 H 08/22/23 03:55 Pulse Oximetry 99 08/22/23 03:55 Oxygen Delivery Method Room Air 08/22/23 03:55 Temperature 98.7 F 08/22/23 03:55 Pulse Rate 107 H 08/22/23 09:40 Respiratory Rate 20 08/22/23 03:55 Blood Pressure 174/114 H 08/22/23 09:02 Pulse Oximetry 97 08/22/23 09:40 Oxygen Delivery Method Room Air 08/22/23 03:55 Medical Decision Making MDM Narrative Medical decision making narrative: Certainly pres is an emergent/urgent situation; potentially demonstrating severe hypertensive retinopathy. Circumstance also complicated by history of migraines and fibromyalgia, chronic pain. I did discuss treating her headache pending further workup. Initiate IV fluids ketorolac and promethazine, lorazepam and dexamethasone. She had had Compazine a few hours ago. Blood pressure checks seem to be quite painful for Ms. Donald; observed to move and wince and stress against the cuff. Rechecking blood pressure myself on left upper arm I get 150/95. This is similar to just prior electronic cuff reading of 154/100. Will need to collect or regular blood pressure readings. Redone automatically with low forearm cuff and get 164/111 I believe. And has subsequently had higher low forearm/wrist measurements. Unfortunately do not have MR imaging over the weekend. I am not sure that CT imaging of the head will be particularly high yield in this case. With ongoing headache will give Dilaudid IV as well as labetalol trial. Was contemplating ketamine PB but concern of increased intracranial pressure perhaps. Labs are pending. Reviewed labs. These are reassuring as a whole. Primary symptoms remain heada cami and affected vision. Pending results of labetalol. Did discuss with Neurology who with able to review records. Doubtful further benefit of imaging. Complicating history of migraine as noted. They are not sure that diagnosis of pres has been shown. Discussed some changes to blood pressure medications like exchanging propranolol for carvedilol or lisinopril for losartan. These might be more effective as headache medications and propranolol in particular also addressing underlying anxiety. I have also ordered for her usual medications for the morning including lisinopril 40 mg, hydrochlorothiazide 25 mg and carvedilol typically 3.125 mg though increased to 6.25 mg for dosing today A pressure 195/119 last measured on near-wrist cuff. If pres, smooth muscle relaxer blood pressure medications might be more appropriate? Calcium channel isabelle? Repeat manual blood pressure checks are pending Still elevated but improved. See patient discharge plan Lab Data Lab results reviewed: Yes I reviewed the patient's lab results Labs: Lab Results 08/22/23 08/22/23 Range/Units 06:23 06:50 WBC 10.40 (4.50-11.00) K/uL RBC 5.65 H (4.00-5.20) m/uL Hgb 15.1 (12.0-16.0) gm/dL Hct 46.3 (33.0-51.0) % MCV 82 (80-100) fL MCH 27 (26-34) pg MCHC 33 (32-36) gm/dL RDW Coeff of Judi 13.7 (11.5-15.5) % Plt Count 266 (140-440) K/uL Neut % (Auto) 73.5 H (42.0-72.0) % Lymph % (Auto) 23.5 (20-44) % [place] % (Auto) 2.5 (0.0-11.0) % Eos % (Auto) 0.2 (0.0-7.0) % Baso % (Auto) 0.0 (0.0-3.0) % Neut # (Auto) 7.60 H (1.7-7.0) K/uL Lymph # (Auto) 2.44 (0.90-2.90) K/uL [place] # (Auto) 0.30 (0.00-0.90) K/UL Eos # (Auto) 0.02 (0.00-0.50) K/uL Baso # (Auto) 0.00 (0.00-0.30) K/uL Abs Immat Gran (auto) 0.03 (0.00-0.30) K/uL Imm/Tot Granulo (auto) 0.3 % ESR 37 H (2-20) mm/hr Sodium 136 (135-149) mmol/L Potassium 3.3 L (3.6-5.1) mmol/L Chloride 101 (96-114) mmol/L Carbon Dioxide 24 (20-32) mmol/L Anion Gap 11 (7-15) mEq/L BUN 12 (5-24) mg/dL Creatinine 0.8 (0.5-1.5) mg/dL Estimated Creat Clear 78.23 Estimated GFR 91 ml/min Glucose 163 H (60-115) mg/dL Calcium 8.8 (8.4-10.6) mg/dL Total Bilirubin 0.9 (0.1-1.5) mg/dL Direct Bilirubin 0.1 (0.0-0.5) mg/dL AST 65 H (12-35) U/L ALT 32 (4-35) U/L Alkaline Phosphatase 203 H (40-150) U/L Troponin I 0.01 (0.01-0.04) ng/mL C-Reactive Protein 2.2 H (0.5-1.0) mg/dL Total Protein 8.0 (6.0-8.3) g/dL Albumin 4.3 (3.3-5.0) g/dL Lab Acknowledgement Test Added ECG Data Attestation: I personally reviewed and interpreted this ECG as follows: (1. Sinus tachycardia with mildly enlarged P-wave. Rate of 110 2. demonstrates normal sinus rhythm rate of 97. There is somewhat prominent P-wave ) Discharge Plan Discharge Clinical Impression: Hypertensive urgency, Migraine, Retinopathy Condition: Improved Additional Instructions: Okay. Focus on hydration. You have this follow-up next week with your primary care provider; be sure to make that. Continue lisinopril dosing at 40 mg daily and hydrochlorothiazide at 25 mg daily. We would like to add in propranolol at 20 mg 3 times daily as this might be more helpful for treating migraines and maybe even some anxiety. And since that is the same class medication as carvedilol, would like you to hold the carvedilol for now. And then add in 10 mg of amlodipine daily. Please reassess pressures then in clinic this next week. Will also send in some pain pills in the form of [place] for you if really needed. Be seen though for worsening vision, persistent new and focal weakness not associated with vomiting, intractable vomiting, fever. Prescriptions: No Action clonidine HCl 0.1 mg tablet 0.1 mg PO BID Qty: 60 0RF amlodipine 10 mg tablet 10 mg PO DAILY Qty: 90 3RF lisinopril 40 mg tablet 40 mg PO QDAY Qty: 90 3RF hydrochlorothiazide 25 mg tablet 25 mg PO QAM Qty: 90 3RF pantoprazole [Protonix] 40 mg tablet,delayed release (DR/EC) 40 mg PO BID Qty: 180 0RF Medical Cannabis escitalopram oxalate 20 mg tablet 20 mg PO DAILY Qty: 30 11RF prochlorperazine maleate [Compazine] 10 mg tablet 10 mg PO Q8H PRN (Reason: nausea and vomiting) Qty: 30 0RF tizanidine 4 mg tablet 8 mg PO QID 30 Days Qty: 240 5RF Ozempic 0.25 mg or 0.5 mg (2 mg/3 mL) pen injector 0.5 mg subcut QWEEK Qty: 3 0RF Follow Up/Referrals: Corrina Hicks [email or web address] [Primary Care Provider] -
[2023-08-22] MEDS: 0.9 % SODIUM CHLORIDE 1000 ml 1,000 ML IV (05:04)
[2023-08-22] MEDS: KETOROLAC 30 MG/ML inj IVP (05:05)
[2023-08-22] MEDS: LORazepam 2 MG/ML inj 0.5 MG IVP (05:05)
[2023-08-22] MEDS: PROMETHAZINE 25 MG/ML INJ 12.5 MG IVP (05:05)
[2023-08-22] MEDS: dexAMETHasone 10 MG/ML inj IVP (05:05)
[2023-08-22 07:01] LABS: Eosinophils Absolute Auto 0.02 K/uL (0.00-0.50); Eosinophils Percent Auto 0.2 % (0.0-7.0); Hematocrit 46.3 % (33.0-51.0); Hemoglobin* 15.1 gm/dL (12.0-16.0); Immature Granulocytes Abs Auto 0.03 K/uL (0.00-0.30); Immature Granulocytes Pct Auto 0.3 %; Lymphocytes Absolute Auto 2.44 K/uL (0.90-2.90); Lymphocytes Percent Auto 23.5 % (20-44); Mean Corpuscular HGB Conc 33 gm/dL (32-36); Mean Corpuscular Hemoglobin 27 pg (26-34); Mean Corpuscular Volume 82 fL (80-100); Monocytes Percent Auto 2.5 % (0.0-11.0); Neutrophils Percent Auto 73.5 % (42.0-72.0); Platelet Count* 266 K/uL (140-440); RDW Coefficient of Variation % 13.7 % (11.5-15.5); Red Blood Count 5.65 m/uL (4.00-5.20)
[2023-08-22 07:04] LABS: Slide Review Reflex No
[2023-08-22 07:15] LABS: Chloride* 101 mmol/L (96-114)
[2023-08-22 07:16] LABS: Albumin* 4.3 g/dL (3.3-5.0); Potassium* 3.3 mmol/L (3.6-5.1); Sodium* 136 mmol/L (135-149)
[2023-08-22 07:18] LABS: Creatinine* 0.8 mg/dL (0.5-1.5); Est. Creatinine Clearance* 78.23; Estimated Glomerular Filt Rate 91 ml/min
[2023-08-22 07:19] LABS: Alanine Aminotransferase* 32 U/L (4-35); Alkaline Phosphatase* 203 U/L (40-150); Anion Gap 11 mEq/L (7-15); Aspartate Amino Transferase* 65 U/L (12-35); Bilirubin Direct* 0.1 mg/dL (0.0-0.5); Bilirubin Total* 0.9 mg/dL (0.1-1.5); Blood Urea Nitrogen* 12 mg/dL (5-24); Calcium* 8.8 mg/dL (8.4-10.6); Carbon Dioxide* 24 mmol/L (20-32); Glucose* 163 mg/dL (60-115)
[2023-08-22 07:22] LABS: C Reactive Protein* 2.2 mg/dL (0.5-1.0)
[2023-08-22] MEDS: LABETALOL HCL 5 MG/ML inj IVP ×2 (07:27→08:12)
[2023-08-22] MEDS: HYDROmorphone 0.5 mg/0.5 ml inj IVP (07:27)
[2023-08-22 07:31] LABS: Troponin I* 0.01 ng/mL (0.01-0.04)
[2023-08-22 08:09] LABS: Erythrocyte SedimentationRate* 37 mm/hr (2-20)
[2023-08-22] MEDS: carvediloL 6.25 MG TABLET PO (09:08)
[2023-08-22] MEDS: hydroCHLOROthiazide 25 MG TABLET PO (09:08)
[2023-08-22] MEDS: lisinopriL 20 MG TABLET 40 MG PO (09:09)
[2023-08-22] MEDS: HYDROmorphone 0.5 mg/0.5 ml inj 1 MG IVP (09:49)
[2023-08-22] MEDS: AMLODIPINE 10 MG TABLET PO (09:49)
== END 2023-08-22 10:30 | disposition home or self-care (01) ==
PROVIDERS: Emergency Provider Family Medicine; PCP Physician Assistant Medical
DX: I16.0 Hypertensive urgency (principal); G43.909 Migraine, unspecified, not intractable, without status migrainosus; H35.00 Unspecified background retinopathy
CPT/HCPCS: 36415; 80048; 80076; 84484; 85025; 85651; 86140; 93005; 96374; 96375; 99284; A9270; J1100; J1170; J1885; J2060; J2550; J7030

== ENCOUNTER 2023-08-26 08:57 | Outpatient (CLI) | payer BC, MEDICARE, SELFPAY | END 2023-08-26 08:58 | disposition home or self-care (01) | LOC: FRMREF 08:57 | PROVIDERS: PCP Physician Assistant Medical; Visit Provider Physician Assistant Medical | DX: E87.6 Hypokalemia (principal) | CPT/HCPCS: 82043; 82570; 84132 ==

== ENCOUNTER 2024-01-13 17:07 | Emergency (ER) | payer BC, MEDICARE, SELFPAY ==
[2024-01-13 17:20] VITALS: BP 148/118; PULSE 114; RESP 16; TEMP 37.8; O2SAT 97; BMI 41.6
[2024-01-13 17:30] VITALS: O2SAT 97
[2024-01-13 17:33] VITALS: PULSE 107; O2SAT 97
[2024-01-13 18:00] VITALS: PULSE 106; O2SAT 97
--- NOTE | 2024-01-13 18:07 | ED.GENADULT ---
HPI - General Adult General Chief complaint: Unspecified Complaint, Adult Stated complaint: Ref from UC after labs-liver function compromised Time Seen by Provider: 01/13/24 17:08 History of Present Illness HPI narrative: This 48-year-old female was at a lab visit this morning to check her liver enzymes among other things. She received a call stating that they were elevated and that she needed to come into the ED for further evaluation. The patient states that she has chronic pain from fibromyalgia and has frequent vomiting. This is been going on for years. She also started Ozempic in July, about 5 months ago and at that time her 1 liver enzyme was at around 60. Lab values today showed an AST at 167 and ALT at 124. The patient does not have any jaundice or other new symptoms. She states that she does not drink alcohol except for once or maybe twice a year. She does take Compazine on occasion for nausea. Related Data Home Medications Medication Instructions Recorded Confirmed Medical Cannabis 07/02/22 08/26/23 Previous Rx's Medication Instructions Recorded escitalopram oxalate 20 mg tablet 20 mg PO DAILY #30 tabs 04/14/23 prochlorperazine maleate 10 mg 10 mg PO Q8H PRN nausea and 05/05/23 tablet (Compazine) vomiting #30 tabs amlodipine 10 mg tablet 10 mg PO DAILY #90 tabs 08/26/23 hydrochlorothiazide 25 mg tablet 25 mg PO QAM #90 tabs 08/26/23 lisinopril 40 mg tablet 40 mg PO QDAY #90 tabs 08/26/23 tizanidine 4 mg tablet 8 mg (2 x 4 mg) PO QID 30 days 09/22/23 #240 tabs pantoprazole 40 mg tablet,delayed 40 mg PO BID #180 tabs 10/22/23 release (Protonix) clonidine HCl 0.1 mg tablet 0.1 mg PO BID #180 tabs 11/05/23 semaglutide 0.25 mg or 0.5 mg (2 0.5 mg (0.736 mL) subcut QWEEK #3 01/11/24 mg/3 mL) subcutaneous pen injector mL (Ozempic) ondansetron HCl 4 mg tablet 4 mg PO Q6H #20 tabs 01/13/24 Allergies Allergy/AdvReac Type Severity Reaction Status Date / Time adhesive Allergy Mild skin Verified 01/13/24 17:18 redness, peeling duloxetine Allergy Mild serotonin Verified 01/13/24 17:18 syndrome ibuprofen Allergy Unknown Verified 01/13/24 17:18 naproxen Allergy Unknown Verified 01/13/24 17:18 CI Pigment Blue 63 Allergy Intermediate serotonin Uncoded 01/13/24 17:18 syndrome Review of Systems Status of ROS: Reports: 10 or more systems reviewed and unremarkable except as noted in History and below Narrative: Constitutional: No fevers, no weight gain or loss. She reports chronic pain from fibromyalgia. Eyes: No discharge. No vision changes. HENT: No congestion, no sore throat, no ear pain. Cardiovascular: No chest pain, no palpitations. Respiratory: No shortness of breath, no wheezes, no cough. Gastrointestinal: She has chronic frequent vomiting. Genitourinary: No dysuria, no hematuria. Musculoskeletal: Normal range of motion. Skin: No rashes, no pruritis. Neurological: No dizziness, weakness, sensory change, speech change. Endo/Heme/Allergies: No bruising or bleeding. No polydipsia. Pysch: no suicidality, no anxiety, no insomnia. All other systems reviewed and are negative. [facility] Medical History (Updated 01/13/24 @ 18:15 by Jefferson So MD) PRES (posterior reversible encephalopathy syndrome) ?I67.83 - Posterior reversible encephalopathy syndrome (ICD-10) Elevated erythrocyte sedimentation rate ?R70.0 - Elevated erythrocyte sedimentation rate (ICD-10) Hypertensive urgency ?I16.0 - Hypertensive urgency (ICD-10) History of irritable bowel syndrome ?Z87.19 - Personal history of other diseases of the digestive system (ICD-10) History of constipation ?Z87.19 - Personal history of other diseases of the digestive system (ICD-10) History of autism ?Z86.59 - Personal history of other mental and behavioral disorders (ICD-10) History of attention deficit disorder ?Z86.59 - Personal history of other mental and behavioral disorders (ICD-10) Surgical History Status post laparoscopy ?Z98.890 - Other specified postprocedural states (ICD-10) History of hysterectomy ?Z90.710 - Acquired absence of both cervix and uterus (ICD-10) History of gastric bypass ?Z98.84 - Bariatric surgery status (ICD-10) History of esophagogastroduodenoscopy (EGD) ?Z98.890 - Other specified postprocedural states (ICD-10) History of colonoscopy ?Z98.890 - Other specified postprocedural states (ICD-10) History of section ?Z98.891 - History of uterine scar from previous surgery (ICD-10) Family History Father Cardiovascular disease Brother Cardiovascular disease Mother Scleroderma Other Mental disorder Skin cancer Social History Narrative: Disabled Has 2 children Medical cannabis use Non-smoker Smoking Status: Never smoker Do you use any of these nicotine containing products: None Second hand tobacco smoke exposure: No How often do you have a drink containing alcohol: never How often do you have six or more drinks on one occasion: Never AUDIT-C Alcohol total score: 0 Non-prescribed substance use: marijuana (any form) Little interest or pleasure in doing things: nearly every day Feeling down, depressed, or hopeless: more than half the days Exam Narrative: Exam Narrative: Constitutional: Well-developed, well-nourished, no acute distress. HEENT: Normocephalic, atraumatic. Neck: Normal range of motion. Nontender. Supple. Heart: Regular. No murmurs. Normal rate. Intact distal pulses. The patient arrives with some tachycardia but at the time of my exam this and return to normal. Lungs: Clear to auscultation. No chest discomfort. No wheezes, rhonchi, or rales. Abdomen: Normal bowel sounds. Nontender. No rebound tenderness. Genitalia: Deferred. Back: No midline tenderness. Normal range of motion. Extremities: Normal range of motion. No injury. Skin: Intact. No rash. Warm. No erythema or pallor. Neurologic: No altered sensation. No weakness. Alert and oriented. Psychiatric: No suicidality. No anxiety or depression. No insomnia. Nursing notes and vitals signs are reviewed. Const: Vital Signs, click to edit/add: Vital Signs - 24 hr 01/13/24 17:20 Temperature 100.1 F H Pulse Rate [Pulse Oximeter] 114 H Respiratory Rate 16 Blood Pressure [Ri ght Forearm] 148/118 H Pulse Oximetry 97 Oxygen Delivery Me thod Room Air Course Vital Signs Vital signs: Initial Vital Signs Temperature 100.1 F H 01/13/24 17:20 Temperature Source Temporal Artery Scan 01/13/24 17:20 Pulse Rate 114 H 01/13/24 17:20 Respiratory Rate 16 01/13/24 17:20 Blood Pressure 148/118 H 01/13/24 17:20 Blood Pressure Mean 128 H 01/13/24 17:20 Blood Pressure Position High-Fowlers 01/13/24 17:20 Pulse Oximetry 97 01/13/24 17:20 Oxygen Delivery Method Room Air 01/13/24 17:20 Vital Signs Temperature 100.1 F H 01/13/24 17:20 Pulse Rate 114 H 01/13/24 17:20 Respiratory Rate 16 01/13/24 17:20 Blood Pressure 148/118 H 01/13/24 17:20 Pulse Oximetry 97 01/13/24 17:20 Oxygen Delivery Method Room Air 01/13/24 17:20 Temperature 100.1 F H 01/13/24 17:20 Pulse Rate 114 H 01/13/24 17:20 Respiratory Rate 16 01/13/24 17:20 Blood Pressure 148/118 H 01/13/24 17:20 Pulse Oximetry 97 01/13/24 17:20 Oxygen Delivery Method Room Air 01/13/24 17:20 Medical Decision Making MDM Narrative Medical decision making narrative: This patient was told to come to the emergency department because of her liver enzymes. They are elevated a bit more than previous values that were acquired about 5 months ago. The patient states that she does not have any new symptoms but does report chronic pain and vomiting. These symptoms were present before she started any of her medications. I did review all of her medications and was most suspicious for Ozempic which was started 5 months ago. I did review a few online resources and did not see any serious or typical adverse effects regarding the liver with regard to this medicine. Compazine however can have some liver toxicity. She denies using any alcohol and states that her gallbladder has been removed. She does not report any new or worsening abdominal pain. I did give her a range of reference for what liver enzymes can indicate and the various causes of elevated liver transaminases. The patient does not have any report of infection. She has not had any recent travel or exposure to disease. She does not use alcohol. It does seem that her liver enzymes are a bit elevated perhaps due to medication. I did prescribe Zofran and advised her to discontinue Compazine at least for now. I recommended that she follow-up with her primary doctor in a week or so to recheck her enzymes. I also advised her regarding signs and symptoms that would indicated need to return here for further evaluation and treatment. Discharge Plan Discharge Clinical Impression: Elevated liver enzymes Patient Disposition: Home, Self-Care Condition: Stable Additional Instructions: Use Zofran as needed and directed for nausea and vomiting symptoms. Hold Compazine. Follow-up with primary physician and recheck labs in a few weeks. Return if worsening. Prescriptions: New ondansetron HCl 4 mg tablet 4 mg PO Q6H Qty: 20 2RF No Action amlodipine 10 mg tablet 10 mg PO DAILY Qty: 90 3RF lisinopril 40 mg tablet 40 mg PO QDAY Qty: 90 3RF hydrochlorothiazide 25 mg tablet 25 mg PO QAM Qty: 90 3RF Medical Cannabis escitalopram oxalate 20 mg tablet 20 mg PO DAILY Qty: 30 11RF prochlorperazine maleate [Compazine] 10 mg tablet 10 mg PO Q8H PRN (Reason: nausea and vomiting) Qty: 30 0RF tizanidine 4 mg tablet 8 mg PO QID 30 Days Qty: 240 5RF pantoprazole [Protonix] 40 mg tablet,delayed release (DR/EC) 40 mg PO BID Qty: 180 3RF clonidine HCl 0.1 mg tablet 0.1 mg PO BID Qty: 180 1RF Ozempic 0.25 mg or 0.5 mg (2 mg/3 mL) pen injector 0.5 mg subcut QWEEK Qty: 3 3RF Follow Up/Referrals: Corrina Hicks PA-C [Primary Care Provider] - Stand Alone Forms: [employer] Info Instructions
== END 2024-01-13 18:35 | disposition home or self-care (01) ==
LOC: ED 18:31
PROVIDERS: Emergency Provider Emergency Medicine Emergency Medical Services; PCP Physician Assistant Medical
DX: R94.5 Abnormal results of liver function studies (principal)
CPT/HCPCS: 80061; 84450; 84460; 99283; 99284

== ENCOUNTER 2025-03-01 08:11 | Outpatient (CLI) | payer BC, MEDICARE, SELFPAY | END 2025-03-01 08:12 | disposition home or self-care (01) | LOC: NFLDREF 03-11 18:09 | PROVIDERS: PCP Physician Assistant Medical; Referring Provider Physician Assistant Medical; Visit Provider Family Medicine | DX: E11.40 Type 2 diabetes mellitus with diabetic neuropathy, unspecified (principal); R29.0 Tetany; G89.29 Other chronic pain; M79.7 Fibromyalgia; E55.9 Vitamin D deficiency, unspecified; Z11.59 Encounter for screening for other viral diseases; K75.81 Nonalcoholic steatohepatitis (NASH); F41.8 Other specified anxiety disorders; G62.9 Polyneuropathy, unspecified; R11.2 Nausea with vomiting, unspecified; M54.59 Other low back pain; Z79.84 Long term (current) use of oral hypoglycemic drugs; Z13.29 Encounter for screening for other suspected endocrine disorder; Z13.6 Encounter for screening for cardiovascular disorders; Z79.85 Long-term (current) use of injectable non-insulin antidiabetic drugs | CPT/HCPCS: 80053; 80061; 82043; 82306; 82570; 83735; 84443; 86803 ==

== ENCOUNTER 2025-03-12 09:39 | Outpatient (CLI) | payer BC, MEDICARE, SELFPAY ==
--- NOTE | 2025-03-12 10:00 | CRLHL7_ITS ---
For Patients: As a result of the Century Cures Act, medical imaging exams and procedure reports are released immediately into your electronic medical record. You may view this report before your referring provider. If you have questions, please contact your health care provider. Indication: RT SIDED ABD PAIN. HX OF OVARIAN CYST Technique: CT Abdomen/Pelvis 121CC ISOVUE 370 intravenous contrast AND WATER PREP Please note that all CT scans at this facility use dose modulation, iterative reconstruction, and/or weight-based dosing when appropriate to reduce radiation dose to as low as reasonably achievable. Comparison: 07/02/2022 Findings: Minimal linear subsegmental atelectasis within the left lower lobe. There is a spiculated nodule within the left lower lobe which measures 8.9 millimeters, series 3, image 28. Diffuse low-attenuation of the hepatic parenchyma. No intrahepatic mass. The liver is enlarged and measures 21.7 cm. No ascites. Postop changes of gastric bypass. Normal pancreas. Spleen is not enlarged. Incidental splenule. No biliary obstruction. No adrenal nodule. Low-density cyst within the left kidney measures 1.1 cm. No hydronephrosis. No renal stone. The ureters are within normal limits as is the bladder. Incidental retroaortic left renal vein is present. The uterus is absent. No bowel obstruction or free air. Normal appendix. No inflammatory changes. No adenopathy. No abdominal wall hernia. The ovaries appear normal. No evidence of ovarian or adnexal cyst. Degenerative disc disease L4-5 and L5-S1. No vertebral body compression fracture. Mild spurring at both hip joints. Impression: Normal ovaries. No adnexal mass or ovarian cyst. Normal appendix. Hepatomegaly with hepatic steatosis. Spiculated pulmonary nodule left lower lobe measures 8.[address] PET recommended. Please note that all CT scans at this facility use dose modulation, iterative reconstruction, and/or weight-based dosing when appropriate to reduce radiation dose to as low as reasonably achievable. Dictated by Horace iLnk MD @ 03/12/2025 12:35:16 PM (Electronically Signed)
== END 2025-03-12 09:40 | disposition home or self-care (01) ==
PROVIDERS: PCP Family Medicine; Visit Provider Family Medicine
DX: R10.9 Unspecified abdominal pain (principal); K76.0 Fatty (change of) liver, not elsewhere classified; R91.8 Other nonspecific abnormal finding of lung field; N83.201 Unspecified ovarian cyst, right side; K22.6 Gastro-esophageal laceration-hemorrhage syndrome; M79.7 Fibromyalgia; K21.9 Gastro-esophageal reflux disease without esophagitis; R11.10 Vomiting, unspecified; R11.0 Nausea; R94.5 Abnormal results of liver function studies; M54.50 Low back pain, unspecified
CPT/HCPCS: 74177; Q9967

== ENCOUNTER 2025-07-05 11:18 | Outpatient (CLI) | payer BC, MEDICARE, SELFPAY | END 2025-07-05 11:19 | disposition home or self-care (01) | PROVIDERS: PCP Family Medicine; Visit Provider Family Medicine | DX: I10 Essential (primary) hypertension (principal); R29.0 Tetany; K76.0 Fatty (change of) liver, not elsewhere classified; R16.0 Hepatomegaly, not elsewhere classified; R74.8 Abnormal levels of other serum enzymes; R00.0 Tachycardia, unspecified; R07.9 Chest pain, unspecified | CPT/HCPCS: 80053; 80076; 80306; 82306; 83690; 83735; 85379 ==